=== PATIENT | male | born 1960 | race Caucasian/White ===

== ENCOUNTER → 2017-07-09 | Outpatient (CLI) | payer MEDICARE | END | disposition home or self-care (01) | LOC: LABWHC1 13:53 | PROVIDERS: ATTEND Physician Assistant | DX: L40.0 Psoriasis vulgaris (principal) | CPT/HCPCS: 36415; 86480 ==

== ENCOUNTER → 2018-10-05 | Outpatient (CLI) | payer MEDICARE | END | disposition home or self-care (01) | LOC: LABWHC1 12:23 | PROVIDERS: ATTEND Family Medicine | DX: Z12.5 Encounter for screening for malignant neoplasm of prostate (principal) | CPT/HCPCS: 36415; G0103 ==

== ENCOUNTER → 2018-10-05 | Outpatient (CLI) | payer MEDICARE | END | disposition home or self-care (01) | LOC: LABWHC1 13:40 | PROVIDERS: ATTEND Physician Assistant | DX: L40.0 Psoriasis vulgaris (principal); Z79.899 Other long term (current) drug therapy | CPT/HCPCS: 36415 ==

== ENCOUNTER 2019-02-28 12:19 | Emergency (ER) | payer OTHER, MEDICARE ==
[2019-02-28] MEDS ORDERED: KETOROLAC 30 MG/ML 1 ML VIAL IM STA (14:09)
[2019-02-28] MEDS ORDERED: LIDOCAINE 5% PATCH TOPICAL STA (14:09)
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
[2019-02-28 16:04] VITALS: BP 128/71; PULSE 90; RESP 17; TEMP 97.8
== END 2019-02-28 16:04 | disposition home or self-care (01) ==
LOC: EC 12:19
DX: M62.838 Other muscle spasm (principal); R07.81 Pleurodynia
CPT/HCPCS: 71101; 99284; 96372; J1885

== ENCOUNTER 2021-07-04 17:55 | Emergency (ER) | payer MEDICARE ==
[2021-07-04 18:53] VITALS: BP 121/74; PULSE 82; RESP 18; TEMP 98.8
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
== END 2021-07-04 21:27 | disposition left against medical advice (07) ==
LOC: EC 17:55
DX: Z53.21 Procedure and treatment not carried out due to patient leaving prior to being seen by health care provider (principal)
CPT/HCPCS: 70450; 70486; 71046; 99499